=== PATIENT | male | born 1995 | race Native Hawaiian/Other Pacific Islander ===

== ENCOUNTER 2018-09-16 21:38 | Emergency (ER) | payer OTHER ==
[~2018-09-16] VITALS: Ht 174 cm; Wt 106.6 kg
[2018-09-16 22:24] LABS: PLATELET COUNT 370 K/uL (142-355)
[2018-09-16 22:37] LABS: POTASSIUM 3.4 mmol/L (3.6-5.2)
[2018-09-17 00:40] VITALS: BP 157/85; TEMP 97.7
== END 2018-09-17 00:40 | disposition home or self-care (01) ==
LOC: ED 21:38
PROVIDERS: Internal Medicine
DX: E86.0 Dehydration (principal); K52.9 Noninfective gastroenteritis and colitis, unspecified; S37.009A Unspecified injury of unspecified kidney, initial encounter
CPT/HCPCS: 36415; 80053; 81000; 82150; 82550; 83690; 83735; 85027; 96360; 96361; 96375; 96376; 99284; J1885; J2405